=== PATIENT | female | born 1985 | race Caucasian/White ===

== ENCOUNTER 2021-05-29 07:55 | Inpatient (IN) | payer OTHER ==
[~2021-05-29] VITALS: Ht 157.5 cm; Wt 54.4 kg
== END 2021-05-30 07:05 | disposition left against medical advice (07) | DRG 392 ==
LOC: ER 07:55 → MEDI 19:04
PROVIDERS: ADMIT Internal Medicine; ATTEND Internal Medicine
PROC: BW21YZZ Computerized Tomography (CT Scan) of Abdomen and Pelvis using Other Contrast (ICD-10-PCS; principal; 2021-05-29)
DX: K52.89 Other specified noninfective gastroenteritis and colitis (principal); R10.32 Left lower quadrant pain; E86.0 Dehydration; E87.8 Other disorders of electrolyte and fluid balance, not elsewhere classified; Z20.822 Contact with and (suspected) exposure to COVID-19